=== PATIENT | female | born 1955 | race Caucasian/White ===

== ENCOUNTER 2023-04-13 09:16 | Outpatient (CLI) | payer MEDICARE | END 2023-04-13 09:17 | disposition home or self-care (01) | LOC: SCSMRI 09:16 | PROVIDERS: ATTEND Internal Medicine Rheumatology | DX: M05.79 Rheumatoid arthritis with rheumatoid factor of multiple sites without organ or systems involvement (principal); M19.072 Primary osteoarthritis, left ankle and foot ==